=== PATIENT | male | born 2000 | race Caucasian/White ===

== ENCOUNTER 2021-02-10 06:31 | Observation (INO) ==
[2021-02-10] MEDS ORDERED: ONDANSETRON INJ 2 MG/ML 2 ML VIAL IV STA (07:04)
[2021-02-10] MEDS ORDERED: SODIUM CHLORIDE 0.9% 1000ML 2,000 ML IV ONE (07:04)
[2021-02-10] MEDS ORDERED: MAGNESIUM SULFATE / D5W 1 GM/100 ML BAG IV STA (07:05)
[2021-02-10 07:12] LABS: Basophils # (auto) 0.01 K/uL (0-0.2); Basophils % (auto) 0.1 %; Eosinophils # (auto) 0.03 K/uL (0-0.5); Eosinophils % (auto) 0.3 %; Hematocrit (blood only) 44.9 % (42-52); Hemoglobin 15.9 g/dL (14.0-18.0); Immature Granulocytes # (auto) 0.01 K/uL (0.00-0.02); Immature Granulocytes % (auto) 0.1 %; Lymphocytes # (auto) 1.38 K/uL (1.2-3.4); Mean Corpuscular Hemoglobin 31.8 pg (25-34); Mean Corpuscular Hgb Conc 35.4 g/dL (32-36); Mean Corpuscular Volume 89.8 fL (80-100); Mean Platelet Volume 10.7 fL (7.4-10.4); Monocytes # (auto) 0.76 K/uL (0.11-0.59); Monocytes % (auto) 8.3 %; Neutrophils # (auto) 7.02 K/uL (1.4-6.5); Neutrophils % (auto) 76.2 %; Platelet Count 460 K/uL (130-400); RDW Coefficient of Variation 12.8 % (11.5-14.5); RDW Standard Deviation 41.9 fL (36.4-46.3); White Blood Count 9.21 K/uL (4.8-10.8)
--- NOTE | 2021-02-10 07:16 | Emergency Department Note ---
Impression & Plan Cyclic vomiting syndrome, Acute dehydration ED Provider Note NAME: SHON BROOKE AGE: 20 SEX: M : 2000 ARRIVES VIA: Walk-In INFORMANT: Patient, ED PROVIDER(S): Guy Pantoja DO CHIEF COMPLAINT: Nausea vomiting HPI: The patient is a 20-year-old male who presented to the emergency department for an evaluation of nausea vomiting. The patient has a history of cyclic vomiting. He has had a history of cyclic vomiting from a very young age. Initially he was evaluated and worked up at [facility] in [place]. The patient now follows at [facility]. He is from the [place] area. He is visiting friends currently. He started having nausea vomiting symptoms over the course the last 24 hours. He denies having any hematemesis. He does have abdominal pain which is diffuse. He has had similar symptoms multiple times in the past. He normally tries to take his outpatient medication regimen which includes a benzodiazepine but he was unable to tolerate the medication because of extensive vomiting. He is also had a history of liver problems because of extensive vomiting in the past as well as hypomagnesemia. The patient denies having any fever or trauma. He does not use marijuana p roducts. He does not drink alcohol frequently and has had no alcohol over the last 24 hours. The patient denies having any headache or neurologic symptoms. He states his symptoms are moderate to severe. He has been started on CBD products with only minimal improvement of his symptoms. He does have a specialist appointment on February 26. ROS: See above HPI for pertinent positives & negatives. A total of 10 systems reviewed and were otherwise negative. PAST MEDICAL HISTORY: See Below PAST SURGICAL HISTORY: See Below FAMILY HISTORY: See Below SOCIAL HISTORY: See Below HOME MEDICATIONS: See Below ALLERGIES: See Below VITALS: See Below PHYSICAL EXAMINATION: GENERAL: The patient is awake and alert. The patient is somewhat anxious appearing. EYES: The conjunctivae are clear. The pupils are round and reactive. EARS, NOSE, MOUTH AND THROAT: The nose is without any evidence of any deformity. NECK: The neck is nontender and supple. RESPIRATORY: Normal respiratory effort is noted there is no evidence of wheezing rhonchi or rales CARDIOVASCULAR: Regular rate and rhythm noted there no murmurs rubs or gallops normal S1 normal S2. GASTROINTESTINAL: The abdomen is soft and nondistended. There is no guarding or rigidity appreciated. MUSCULOSKELETAL/EXTREMITIES: There is no evidence of gross deformity full range of motion is noted in the hips and shoulders. SKIN: There is no obvious evidence of any rash. There are no petechiae, pallor or cyanosis noted. NEUROLOGIC: Patient is awake alert and oriented x3 strength is symmetric patellar reflexes are 2+ bilaterally MEDICAL DECISION MAKING: The patient is a 20-year-old male who presented to the emergency department for an evaluation of cyclic vomiting. The patient has a history of similar episodes in the past ever since he was a young child. He does have specialty services and has a specialist appointment scheduled for the middle of February. The patient states he normally responds well to benzodiazepines as well as antiemetics but admits that his condition is very difficult to manage at times. He was treated with significant IV fluid hydration as well as Valium and Zofran. He was reevaluated multiple times. He was feeling somewhat improved on reevaluation. I discussed the patient's laboratory results with him. He was found to have significant dehydration. His abdominal exam was not consistent with acute surgical abdomen. The patient was treated with multiple fluid boluses. He continued to have episodes of emesis throughout the morning. He had some episodes of bilious emesis so an ultrasound was obtained to ensure there was no biliary pathology. I discussed the patient's laboratory and radiographic studies with him once again. Because of ongoing symptoms his parent was concerned that he should stay in the hospital for further inpatient evaluation. For this reason I discussed his case with the on-call [facility]. Triage Nursing notes reviewed. Prior medical records reviewed Vital Signs: reviewed and remarkable for no significant abnormalities Differential diagnosis: Gastroenteritis, food borne illness, infections, appendicitis, diverticulitis, inflammatory bowel disease, obstruction, GI bleed, biliary pathology, volvulus, as well as other pathologies. ER treatment provided: See below Diagnostics interpreted by me: ECG: none Cardiac Monitoring: An order was placed for continuous cardiac monitoring. The monitor shows a rate of 82 bpm with sinus rhythm. Laboratory studies: As stated above and show below. Imaging studies: See below Consultation(s): 1440: I discussed this case with Dr. Fermin who is on-call for the [facility] group. He will evaluate the patient in the emergency department. Past Med/Surg History Medical History Cyclic vomiting syndrome Social History Smoking Status: Never smoker Hx Alcohol Use: Yes Alcohol type: beer Alcohol Intake Frequency: Monthly or Less Feels Safe at Home: Yes Allergies Allergies Allergy/AdvReac Type Severity Reaction Status Date / Time haloperidol [From Haldol] AdvReac Severe Paralyzed Unverified 02/10/21 07:30 ~ mouth foaming Home Meds Home Medications Medication Instructions Recorded Confirmed calcium carbonate [Calcium 500] 0 mg PO QAM 02/10/21 02/10/21 cholecalciferol (vitamin D3) 25 mcg PO QAM 02/10/21 02/10/21 [Vitamin D3] Results & Data (ED) Vital Signs Vital Signs - 24 hr 02/10/21 06:41 02/10/21 07:27 02/10/21 10:12 Temperature 36.8 C Temperature Source Temporal Artery Scan Pulse Rate 85 Pulse Rate [Apical] 89 Respiratory Rate 18 18 Respiratory Effort / Characteristics Non-Labored Spontaneous Respiratory Depth Normal Blood Pressure 132/87 Blood Pressure [Left Arm] 145/88 H Blood Pressure Mean 102 Blood Pressure Mean [Left Arm] 107 Pulse Oximetry 98 98 98 Oxygen Delivery Method Room Air Room Air Room Air Sepsis Recent Fever Within 48 Hours No Sepsis New/Unexplained Change in Mental Status No Sepsis Action Taken by Nursing No Action Required 02/10/21 11:50 02/10/21 13:12 02/10/21 14:38 Temperature Temperature Source Pulse Rate Pulse Rate [Apical] 69 82 92 H Respiratory Rate 14 21 15 Respiratory Effort / Characteristics Respiratory Depth Blood Pressure Blood Pressure [Left Arm] 138/83 141/96 H 140/80 Blood Pressure Mean Blood Pressure Mean [Left Arm] 101 111 100 Pulse Oximetry 99 100 99 Oxygen Delivery Method Room Air Room Air Room Air Sepsis Recent Fever Within 48 Hours Sepsis New/Unexplained Change in Mental Status Sepsis Action Taken by [facility] Medications Current Medication List: was personally reviewed by me Laboratory Data Attestation: I reviewed the patient's lab results. Result diagrams: 02/10/21 07:00 02/10/21 07:00 Lab Results 02/10/21 02/10/21 02/10/21 Range/Units 07:00 07:00 07:45 WBC 9.21 (4.8-10.8) K/uL RBC 5.00 (4.7-6.1) M/uL Hgb 15.9 (14.0-18.0) g/dL Hct 44.9 (42-52) % MCV 89.8 (80-100) fL MCH 31.8 (25-34) pg MCHC 35.4 (32-36) g/dL RDW Std Deviation 41.9 (36.4-46.3) fL RDW Coeff of Felix 12.8 (11.5-14.5) % Plt Count 460 H (130-400) K/uL MPV 10.7 H (7.4-10.4) fL Immature Gran % (Auto) 0.1 % Neut % (Auto) 76.2 % Lymph % (Auto) 15.0 % [place] % (Auto) 8.3 % Eos % (Auto) 0.3 % Baso % (Auto) 0.1 % Neut # (Auto) 7.02 H (1.4-6.5) K/uL Lymph # (Auto) 1.38 (1.2-3.4) K/uL [place] # (Auto) 0.76 H (0.11-0.59) K/uL Eos # (Auto) 0.03 (0-0.5) K/uL Baso # (Auto) 0.01 (0-0.2) K/uL Immature Gran # (Auto) 0.01 (0.00-0.02) K/uL Sodium 137 (136-145) mmol/L Potassium 3.7 (3.5-5.1) mmol/L Chloride 103 (98-107) mmol/L Carbon Dioxide 26 (21-32) mmol/L Anion Gap 8.0 (3-11) BUN 15 (7-18) mg/dl Creatinine 1.05 (0.6-1.4) mg/dl Est Cr Clr Drug Dosing 90.5 ml/min Est GFR ( Amer) 116.2 Est GFR (Non-Af Amer) 100.3 BUN/Creatinine Ratio 13.9 (10-20) Glucose 146 H (70-99) mg/dl Calcium 10.7 H (8.5-10.1) mg/dl Magnesium 2.2 (1.8-2.4) mg/dl Total Bilirubin 1.5 H (0.2-1) mg/dl AST 30 (15-37) U/L ALT 49 (12-78) U/L Alkaline Phosphatase 106 (45-117) U/L Total Protein 8.8 H (6.4-8.2) gm/dl Albumin 5.2 H (3.4-5.0) gm/dl Globulin 3.6 (2.5-4.0) gm/dl Albumin/Globulin Ratio 1.4 (0.9-2) Lipase 65 L (73-393) U/L Urine Color Dark Yellow Urine Appearance Cloudy A (Clear) Urine pH 7.5 (4.5-7.5) Ur Specific [place] 1.033 H (1.000-1.030) Urine Protein 2+ H (Negative) Urine Glucose (UA) Negative (Negative) Urine Ketones 4+ H (Negative) Urine Blood Negative (Negative) Urine Nitrite Negative (Negative) Urine Bilirubin 1+ H (Negative) Urine Urobilinogen Negative (Negative) Ur Leukocyte Esterase Negative (Negative) Urine WBC (Auto) 1-5 (0-5) /hpf Urine RBC (Auto) 0-4 (0-4) /hpf U Hyaline Cast (Auto) 5-10 H (0-5) /lpf U Epithel Cells (Auto) 10-20 H (0-5) /lpf Urine Bacteria (Auto) Negative (Negative) Urine Opiates Screen (Neg) Ur Methadone, Qual (Neg) Urine Barbiturates (Neg) Ur Phencyclidine (PCP) (Neg) U Amphetamin/Meth Scrn (Neg) MDMA (Ecstasy) Screen (Neg) U Benzodiazepines Scrn (Neg) Ur Cocaine Metabolite (Neg) U Marijuana (THC) Screen (Neg) COVID-19 Eval Order SARS-CoV-2 (PCR) (Negative) Influenza Type A (PCR) (Neg) Influenza Type B (PCR) (Neg) RSV (RT-PCR) (Neg) 02/10/21 02/10/21 02/10/21 Range/Units 13:03 13:07 13:07 WBC (4.8-10.8) K/uL RBC (4.7-6.1) M/uL Hgb (14.0-18.0) g/dL Hct (42-52) % MCV (80-100) fL MCH (25-34) pg MCHC (32-36) g/dL RDW Std Deviation (36.4-46.3) fL RDW Coeff of Felix (11.5-14.5) % Plt Count (130-400) K/uL MPV (7.4-10.4) fL Immature Gran % (Auto) % Neut % (Auto) % Lymph % (Auto) % [place] % (Auto) % Eos % (Auto) % Baso % (Auto) % Neut # (Auto) (1.4-6.5) K/uL Lymph # (Auto) (1.2-3.4) K/uL [place] # (Auto) (0.11-0.59) K/uL Eos # (Auto) (0-0.5) K/uL Baso # (Auto) (0-0.2) K/uL Immature Gran # (Auto) (0.00-0.02) K/uL Sodium (136-145) mmol/L Potassium (3.5-5.1) mmol/L Chloride (98-107) mmol/L Carbon Dioxide (21-32) mmol/L Anion Gap (3-11) BUN (7-18) mg/dl Creatinine (0.6-1.4) mg/dl Est Cr Clr Drug Dosing ml/min Est GFR ( Amer) Est GFR (Non-Af Amer) BUN/Creatinine Ratio (10-20) Glucose (70-99) mg/dl Calcium (8.5-10.1) mg/dl Magnesium (1.8-2.4) mg/dl Total Bilirubin (0.2-1) mg/dl AST (15-37) U/L ALT (12-78) U/L Alkaline Phosphatase (45-117) U/L Total Protein (6.4-8.2) gm/dl Albumin (3.4-5.0) gm/dl Globulin (2.5-4.0) gm/dl Albumin/Globulin Ratio (0.9-2) Lipase (73-393) U/L Urine Color Urine Appearance (Clear) Urine pH (4.5-7.5) Ur Specific [place] (1.000-1.030) Urine Protein (Negative) Urine Glucose (UA) (Negative) Urine Ketones (Negative) Urine Blood (Negative) Urine Nitrite (Negative) Urine Bilirubin (Negative) Urine Urobilinogen (Negative) Ur Leukocyte Esterase (Negative) Urine WBC (Auto) (0-5) /hpf Urine RBC (Auto) (0-4) /hpf U Hyaline Cast (Auto) (0-5) /lpf U Epithel Cells (Auto) (0-5) /lpf Urine Bacteria (Auto) (Negative) Urine Opiates Screen Neg (Neg) Ur Methadone, Qual Neg (Neg) Urine Barbiturates Neg (Neg) Ur Phencyclidine (PCP) Neg (Neg) U Amphetamin/Meth Scrn Neg (Neg) MDMA (Ecstasy) Screen Neg (Neg) U Benzodiazepines Scrn Pos H (Neg) Ur Cocaine Metabolite Neg (Neg) U Marijuana (THC) Screen Pos H (Neg) COVID-19 Eval Order CovFluRsv at [facility] SARS-CoV-2 (PCR) NEGATIVE (Negative) Influenza Type A (PCR) Negative (Neg) Influenza Type B (PCR) Negative (Neg) RSV (RT-PCR) Negative (Neg) Administered Medications Discontinued Medications Diazepam (Diazepam 5 Mg/Ml Inj 10ml Vial) 5 mg IV NOW STA Stop: 02/10/21 07:05 Last Admin: 02/10/21 07:29 Dose: 5 mg Documented by: [id number] Diazepam (Diazepam 5 Mg/Ml Inj 10ml Vial) 2.5 mg IV NOW STA Stop: 02/10/21 08:39 Last Admin: 02/10/21 09:18 Dose: 2.5 mg Documented by: [id number] Sodium Chloride (Nss 1000ml) 2,000 mls @ 999 mls/hr IV .Q2H1M ONE Stop: 02/10/21 09:04 Last Infusion: 02/10/21 11:31 Dose: 0 mls/hr Documented by: [id number] Admin: 02/10/21 07:29 Dose: 999 mls/hr Documented by: [id number] Magnesium Sulfate/Dextrose (Magnesium Sulfate / D5w) 1 gm in 100 mls @ 100 mls/hr IV NOW STA Stop: 02/10/21 08:04 Last Infusion: 02/10/21 08:33 Dose: 0 mls/hr Documented by: [id number] Admin: 02/10/21 07:29 Dose: 100 mls/hr Documented by: [id number] Pantoprazole Sodium 40 mg/ (Syringe) 10 mls @ 5 mls/min IV NOW ONE Stop: 02/10/21 12:32 Last Admin: 02/10/21 13:31 Dose: 5 mls/min Documented by: [id number] Lactated Ringer's (Lr) 1,000 mls @ 999 mls/hr IV .Q1H1M ONE Stop: 02/10/21 13:31 Last Admin: 02/10/21 12:42 Dose: 999 mls/hr Documented by: [id number] Ondansetron HCl (Ondansetron Inj 2 Mg/Ml 2 Ml Vial) 4 mg IV NOW STA Stop: 02/10/21 07:05 Last Admin: 02/10/21 07:29 Dose: 4 mg Documented by: [id number] Imaging Data Radiologist's Impression: Gallbladder Ultrasound 02/10/21 12:31 US gallbladder CLINICAL HISTORY: vomiting COMPARISON STUDY: No previous studies for comparison. FINDINGS: The pancreas appears normal as visualized. The liver appears sonographically normal. The gallbladder appears sonographically normal. There is no ductal dilatation. The common bile duct measures 3 mm. There is no right-sided hydronephrosis. IMPRESSION: Normal biliary ultrasound. ACT 112: Negative or not required by law. Electronically signed by: Adrian Pascual M.D. 02/10/2021 2:05 PM KUB X-Ray 02/10/21 12:31 XR KUB/Abdomen 1 view CLINICAL HISTORY: vomiting COMPARISON STUDY: No previous studies for comparison. FINDINGS: There is no pathologic bowel dilatation. There are no calcifications suspicious for urinary tract calculi. IMPRESSION: Nonobstructive bowel gas pattern. ACT 112: Negative or not required by law. Electronically signed by: Adrian Pascual M.D. 02/10/2021 1:00 PM Discharge Plan Visit Data Chief Complaint: Vomiting Stated Complaint: VOMITING ED Provider: Guy Pantoja Discharge Problem: Cyclic vomiting syndrome, Acute dehydration Forms Stand Alone Forms: [employer] Prescriptions Prescriptions: No Action calcium carbonate [Calcium 500] 500 mg calcium (1,250 mg) Tablet 0 mg PO QAM RF: 0 cholecalciferol (vitamin D3) [Vitamin D3] 25 mcg (1,000 unit) Tablet 25 mcg PO QAM RF: 0 Referrals Referrals: Abundio Camp, [Primary Care Provider] -
[2021-02-10 07:28] LABS: Albumin Level 5.2 gm/dl (3.4-5.0); BUN Creatinine Ratio 13.9 (10-20); Calcium 10.7 mg/dl (8.5-10.1); Creatinine Clr Calc Pharmacy 90.5 ml/min; Est GFR (African American) 116.2; Est GFR (Non-African American) 100.3; Magnesium 2.2 mg/dl (1.8-2.4); Potassium 3.7 mmol/L (3.5-5.1)
[2021-02-10 07:31] LABS: Albumin Globulin Ratio 1.4 (0.9-2); Bilirubin,Total 1.5 mg/dl (0.2-1); Globulin 3.6 gm/dl (2.5-4.0); Total Protein 8.8 gm/dl (6.4-8.2)
[2021-02-10 08:00] LABS: Appearance Urine Cloudy (Clear); Bacteria Urine Automated Negative (Negative); Blood Urine Negative (Negative); Color Urine Dark Yellow; Glucose Urine UA Negative (Negative); Ketones Urine 4+ (Negative); Leukocyte Esterase Urine Negative (Negative); Nitrite Urine Negative (Negative); RBC Urine Automated 0-4 /hpf (0-4); Specific Gravity Urine 1.033 (1.000-1.030); Urobilinogen Urine Negative (Negative); pH Urine 7.5 (4.5-7.5)
[2021-02-10 08:07] LABS: Bilirubin Urine 1+ (Negative); Protein Urine 2+ (Negative)
[2021-02-10] MEDS ORDERED: PANTOprazole 40 MG in SYRINGE 0 ML IV ONE (12:31)
[2021-02-10] MEDS ORDERED: LACTATED RINGER'S 1,000 ML IV ONE (12:31)
--- NOTE | 2021-02-10 13:02 | XRay Report ---
XR KUB/Abdomen 1 view CLINICAL HISTORY: vomiting COMPARISON STUDY: No previous studies for comparison. FINDINGS: There is no pathologic bowel dilatation. There are no calcifications suspicious for urinary tract calculi. IMPRESSION: Nonobstructive bowel gas pattern. ACT 112: Negative or not required by law. Electronically signed by: Adrian Pascual M.D. 02/10/2021 1:00 PM
[2021-02-10 13:44] LABS: Amphetamines+Metham, Urine Neg (Neg); Barbiturates, Urine Neg (Neg); Benzodiazepine, Urine Pos (Neg); Cocaine, Urine Neg (Neg); MDMA (Ecstacy), Urine Neg (Neg); Methadone, Urine Neg (Neg); Opiate, Urine Neg (Neg); Phencyclidine, Urine Neg (Neg)
[2021-02-10 14:02] LABS: Influenza A virus by PCR Negative (Neg); Influenza B virus by PCR Negative (Neg); RSV by PCR Negative (Neg); SARS CoV2 RNA(COVID-19) InHosp NEGATIVE (Negative)
--- NOTE | 2021-02-10 14:06 | Ultrasound Report ---
US gallbladder CLINICAL HISTORY: vomiting COMPARISON STUDY: No previous studies for comparison. FINDINGS: The pancreas appears normal as visualized. The liver appears sonographically normal. The gallbladder appears sonographically normal. There is no ductal dilatation. The common bile duct measures 3 mm. There is no right-sided hydronephrosis. IMPRESSION: Normal biliary ultrasound. ACT 112: Negative or not required by law. Electronically signed by: Adrian Pascual M.D. 02/10/2021 2:05 PM
--- NOTE | 2021-02-10 15:15 | History & Physical Report ---
Date of Service February 10, 2021 Assessment & Plan (1) Cyclic vomiting syndrome: Bilious vomiting -no obstruction suspected from x-ray KUB, will defer CT given his young age and likely multiple previous CTs with low likelihood of obstruction Trial sumatriptan 6 mg SQ in the ER. Consider intranasal spray outpatient prescription if effective. Ondansetron, Phenergan, Valium as needed for nausea or vomiting. Mostly the Valium has worked before in the past. May shower as long as he is not dizzy Continue IV fluids with LR @ 150 ml/hr Famotidine 20 mg IV daily for gastric protection (2) Abdominal migraine, intractable: Suspected diagnosis as above. (3) Acute dehydration: Given ongoing vomiting we will continue IV fluids with LR @ 150 ml/hr overnight Hyaline casts noted in urine in addition to ketones Admission and Anticipated Discharge Date Admission Date: February 10, 2021 History of Present Illness Chief Complaint: Nausea and vomiting Primary Care Provider: Abundio Camp DO Alexandro Sy is a 20-year-old male who presents to the ER with intractable nausea and vomiting. His mother is at bedside who provides a lot of the history. He has a longstanding history of cyclic vomiting syndrome since he was 3 years old. Previously on prophylaxis for nortriptyline for a year but then it stopped working. They recently transferred to neuro gastric specialist at [facility] with follow-up on February 26 however as part of the work-up for this is routine medications were stopped. He does note associated migrainous headaches although reports his abdominal pain, nausea and vomiting have never been described as abdominal migraine. His mother used to work in a pharmaceutical industry and has many friends in medicine and shows me a message from one of them suggesting sumatriptan as a possible treatment. He has never tried this before in the past. His symptoms have been so severe has had to drop out of school. This is the sixth ER visit since September. On prior occasions usual antiemetics such as ondansetron and Compazine have been unsuccessful. He reports some prior improvement with Phenergan. Mostly diazepam, hot water showers, and "sleeping it off" are the only things he has found that helps. Last EGD in September which showed a lot of things were read. He was supposed to start on a medication starting with 'o' for stomach acid which I presume is omeprazole although is yet to brain picker this medication. His mother reports he had a normal gastric emptying study as a child but not as an adult. On this occasion he was here visiting friends. He did not drink any alcohol. As soon as he arrived he started vomiting. In the ER THC was positive and the patient admits to using CBD oil. Both the patient and his mother are adamant this is not contributing towards his current presentation. Despite a total of 7.5 mg IV diazepam, ondansetron 4 mg IV, pantoprazole 40 mg IV, magnesium sulfate and IV fluids he continues to vomit in the ER. Therefore he was referred to medicine for admission ongoing management of intractable cyclic vomiting syndrome. Allergies Allergy/AdvReac Type Severity Reaction Status Date / Time haloperidol [From Haldol] AdvReac Severe Paralyzed Unverified 02/10/21 07:30 ~ mouth foaming Home Medications Medication Instructions Recorded Confirmed Type calcium carbonate [Calcium 500] 0 mg PO QAM 02/10/21 02/10/21 History cholecalciferol (vitamin D3) 25 mcg PO QAM 02/10/21 02/10/21 History [Vitamin D3] Past Med/Surg History Medical History Cyclic vomiting syndrome Social History Smoking Status: Never smoker Do You Dip or Chew Tobacco: No; Hx Alcohol Use: Yes Alcohol type: beer Alcohol Intake Frequency: Monthly or Less Hx Substance Use: Yes Last Used Substance: Days (ago) Last Used Substance Other:: 7 days Preferred Language: Estonian Housing Grant Analyst Required: No Beliefs That Will Affect Care: None Current Living Situation: Family Other Information That Helps Us Care for You: No Feels Safe at Home: Yes Safety Concerns: Feels Safe At This Time Assistive Devices: Glasses Assistive Devices Comment: Glasses not here Review of Systems Review of Systems: All systems reviewed & are unremarkable except as noted in HPI & below Gastrointestinal: + abdominal pain (Generalized), + belching, + vomiting (billous) and + cramping; no change in bowel habits Physical Exam Constitutional: WD/WN, vitals as above Eyes: + anicteric sclerae; normal pupil size ENMT: Mouth: + dry oral mucous membranes Respiratory: normal respiratory effort, lungs clear to auscultation Cardiovascular: RRR, no murmur, no edema Gastrointestinal (Abdomen): Inspection/Auscultation: abdomen normal to inspection and normal bowel sounds Percussion/Palpation: + abdomen tender (Generalized), + guarding and abdomen soft; abdomen not rigid Musculoskeletal: no cyanosis or clubbing, extremities motor strength 5/5 Skin: no rashes, warm and dry Neurologic: moves all extremities and awake; not confused Psychiatric: A+Ox3, euthymic affect Results & Data Results & Data ([facility]) Vital Signs (Past 12 Hours) Vital Signs Temp Pulse Pulse Resp BP BP Pulse Ox 02/10/21 14:38 92 H 15 140/80 99 02/10/21 13:12 82 21 141/96 H 100 02/10/21 11:50 69 14 138/83 99 02/10/21 10:12 89 18 145/88 H 98 02/10/21 07:27 98 02/10/21 06:41 36.8 C 85 18 132/87 98 Diagnostic Findings US gallbladder IMPRESSION: Normal biliary ultrasound. XR KUB/Abdomen 1 view IMPRESSION: Nonobstructive bowel gas pattern. Medications Administered ER medications given: Ondansetron 4 mg IV Diazepam 5 mg IV NSS 2L bolus Magnesium sulfate 1 g IV Diazepam 2.5 mg IV Pantoprazole 40 mg IV Lactated Ringer's 1L bolus ECG Indication: abdominal pain Rate (beats per minute): 73 Rhythm: sinus with SA Findings: no acute ischemic change and no prolonged QT Change: no significant change Code Status & VTE Plan Code Status Full VTE Prophylaxis Plan VTE Prophylaxis will be ordered: No PG Care Time/CCT Total # of Minutes Spent Total Time Spent with Patient: Total time spent is greater than 50% in coordination of care (as documented) at patient's floor/unit and/or counseling patient: Coding Level of Care Code 30400 OBS Care - Level 3 Diagnoses Cyclic vomiting syndrome R11.15 Abdominal migraine, intractable G43.D1 Acute dehydration E86.0
[2021-02-10] MEDS ORDERED: SUMAtriptan succinate 6 MG/0.5 ML VIAL SQ STA (16:18)
[2021-02-10] MEDS ORDERED: SUMAtriptan succinate 6 MG/0.5 ML VIAL ONE (16:20)
[2021-02-10] MEDS ORDERED: PROMETHAZINE HCL 12.5 MG in SODIUM CHLORIDE 0.9% 50 ML IV PRN (17:32)
[2021-02-10] MEDS ORDERED: ONDANSETRON INJ 2 MG/ML 2 ML VIAL IV PRN (17:32)
[2021-02-10] MEDS ORDERED: FAMOTIDINE 20MG/5ML IV PUSH IV STA (17:32)
[2021-02-10] MEDS ORDERED: FAMOTIDINE 20 MG in SYRINGE 3 ML IV ONE (17:45)
[2021-02-10] MEDS: LACTATED RINGER'S 1,000 ML IV SCH (17:47)
[2021-02-10] MEDS ORDERED: diazePAM 5 MG TABLET PO PRN (19:03)
[2021-02-10] MEDS ORDERED: SUMAtriptan succinate 6 MG/0.5 ML VIAL SQ PRN (20:06)
[2021-02-10] MEDS ORDERED: ACETAMINOPHEN 1,000 MG/100 ML VIAL IV PRN (23:47)
[2021-02-11] MEDS: LACTATED RINGER'S 1,000 ML IV SCH ×2 (00:15→06:00)
[2021-02-11 06:22] LABS: Alanine Aminotransferase 36 U/L (12-78); Albumin Globulin Ratio 1.4 (0.9-2); Albumin Level 3.8 gm/dl (3.4-5.0); Alkaline Phosphatase 75 U/L (45-117); Aspartate Aminotransferase 15 U/L (15-37); BUN Creatinine Ratio 10.9 (10-20); Bilirubin,Total 1.2 mg/dl (0.2-1); Blood Urea Nitrogen 8 mg/dl (7-18); Calcium 8.8 mg/dl (8.5-10.1); Carbon Dioxide 29 mmol/L (21-32); Chloride 108 mmol/L (98-107); Creatinine Clr Calc Pharmacy 150.8 ml/min; Est GFR (African American) > 150.0; Est GFR (Non-African American) 130.2; Globulin 2.7 gm/dl (2.5-4.0); Glucose 95 mg/dl (70-99); Potassium 3.9 mmol/L (3.5-5.1); Sodium 139 mmol/L (136-145); Total Protein 6.5 gm/dl (6.4-8.2)
--- NOTE | 2021-02-11 09:46 | Discharge Summary ---
Date of Service February 11, 2021 Admission HPI Per Admitting Provider Alexandro Sy is a 20-year-old male who presents to the ER with intractable nausea and vomiting. His mother is at bedside who provides a lot of the history. He has a longstanding history of cyclic vomiting syndrome since he was 3 years old. Previously on prophylaxis for nortriptyline for a year but then it stopped working. They recently transferred to neuro gastric specialist at [facility] with follow-up on February 26 however as part of the work-up for this is routine medications were stopped. He does note associated migrainous headaches although reports his abdominal pain, nausea and vomiting have never been described as abdominal migraine. His mother used to work in a [employer] industry and has many friends in medicine and shows me a message from one of them suggesting sumatriptan as a possible treatment. He has never tried this before in the past. His symptoms have been so severe has had to drop out of school. This is the sixth ER visit since September. On prior occasions usual antiemetics such as ondansetron and Compazine have been unsuccessful. He reports some prior improvement with Phenergan. Mostly diazepam, hot water showers, and "sleeping it off" are the only things he has found that helps. Last EGD in September which showed a lot of things were read. He was supposed to start on a medication starting with 'o' for stomach acid which I presume is omeprazole although is yet to warp picker this medication. His mother reports he had a normal gastric emptying study as a child but not as an adult. On this occasion he was here visiting friends. He did not drink any alcohol. As soon as he arrived he started vomiting. In the ER THC was positive and the patient admits to using CBD oil. Both the patient and his mother are adamant this is not contributing towards his current presentation. Despite a total of 7.5 mg IV diazepam, ondansetron 4 mg IV, pantoprazole 40 mg IV, magnesium sulfate and IV fluids he continues to vomit in the ER. Therefore he was referred to medicine for admission ongoing management of intractable cyclic vomiting syndrome. Admission Exam Per Admitting Provider Constitutional: WD/WN, vitals as above Eyes: + anicteric sclerae; normal pupil size ENMT: Mouth: + dry oral mucous membranes Respiratory: normal respiratory effort, lungs clear to auscultation Cardiovascular: RRR, no murmur, no edema Gastrointestinal (Abdomen): Inspection/Auscultation: abdomen normal to inspection and normal bowel sounds Percussion/Palpation: + abdomen tender (Generalized), + guarding and abdomen soft; abdomen not rigid Musculoskeletal: no cyanosis or clubbing, extremities motor strength 5/5 Skin: no rashes, warm and dry Neurologic: moves all extremities and awake; not confused Psychiatric: A+Ox3, euthymic affect Principal Diagnosis 1. Cyclic vomiting syndrome, acute exacerbation resolved 2. Acute dehydration, resolved 3. Marijuana abuse Discharge Exam Constitutional WD/WN, vitals as above Eyes + anicteric sclerae Respiratory normal respiratory effort, lungs clear to auscultation Auscultation: lungs clear to auscultation bilaterally Cardiovascular RRR, no murmur, no edema Gastrointestinal (Abdomen) normal bowel sounds, soft, nontender, no hepatosplenomegaly Skin no rashes, warm and dry Neurologic PERRL, EOMI, accommodation nl, no face palsy, no dysarthria Discharge Data Allergies Allergy/AdvReac Type Severity Reaction Status Date / Time haloperidol [From Haldol] AdvReac Severe Paralyzed Unverified 02/10/21 07:30 ~ mouth foaming Consultations 02/10/21 14:22 ED Decision to Admit Stat 02/10/21 14:38 ED Decision to Admit Stat Ordered Studies 02/10/21 12:31 US gallbladder Stat Hospital Course (1) Cyclic vomiting syndrome: Patient had a significant nausea and vomiting, had bowel rest overnight. Hydrated with IV fluids. I was alerted by nursing prior to my visit with him that the patient was feeling much better and wanted be discharged. During my interview, patient expressed no complaints and is completed his entire breakfast without problems. He denies any abdominal pain. Plan today will be to discharge home, I did advise patient to discontinue marijuana as it can make this worse. Patient is to follow-up with his primary care physician as well as other specialists as previously instructed. (2) Abdominal migraine, intractable: Suspected diagnosis as above. (3) Acute dehydration: Given ongoing vomiting we will continue IV fluids with LR @ 150 ml/hr overnight Hyaline casts noted in urine in addition to ketones Total Time Total Time Spent Total Time Spent (In Minutes): 25 Discharge Plan Discharge Items Patient Disposition: Home - Self-Care Reason For Visit: CYCLIC VOMITING SYNDROME Discharge Diagnosis: Cyclic vomiting syndrome, now resolved Acute dehydration, resolved Activity: Resume your previous activity Non-emergency contact: Primary Care Provider Call non-emergency contact if: your symptoms worsen and your rectal temperature is above 100.4 Follow-up/Referrals: Abundio Camp, [Primary Care Provider] - Diet: Regular Addtl Attending Provider Instructions: None Pending Studies at Discharge: No Stand-Alone Forms: My [facility], Smoking Cessation Medications and DC Order Prescriptions: Continued calcium carbonate [Calcium 500] 500 mg calcium (1,250 mg) Tablet 0 mg PO QAM RF: 0 cholecalciferol (vitamin D3) [Vitamin D3] 25 mcg (1,000 unit) Tablet 25 mcg PO QAM RF: 0 Discharge Orders: Discharge Order (Routine); Ordered 02/11/21 Ordered By: Brice Jo Admission Data Admit Date/Time: 02/10/21 14:54 Attending Provider: Brice Jo Admit Provider: Ricardo Fermin Primary Care Provider: Abundio Camp Other Providers: Ricardo Fermin Other Interventions: Discharge Summary Assessment (RN) Last Done: 02/11/21 09:24 Coding Level of Care Code 94751 OBS Care - Discharge Diagnoses Cyclic vomiting syndrome R11.15 Abdominal migraine, intractable G43.D1 Acute dehydration E86.0
--- NOTE | 2021-02-11 21:44 | Electrocardiogram Report ---
Test Reason : Blood Pressure : / mmHG Vent. Rate : 073 BPM Atrial Rate : 073 BPM P-R Int : 128 ms QRS Dur : 094 ms QT Int : 408 ms P-R-T Axes : 060 086 055 degrees QTc Int : 449 ms Poor data quality, interpretation may be adversely affected Sinus rhythm with marked sinus arrhythmia Otherwise normal ECG No previous ECGs available Confirmed by Surinder Egan ([id number]) on 02/11/2021 9:44:07 PM Referred By: REFERRED SELF Confirmed By:Surinder Egan
[2021-02-14 09:52] LABS: 7-Aminoclonaz, Confirm NEGATIVE ng/mL (<25); Hydro-Alp Ur, GC/MS NEGATIVE ng/mL (<25); Hydroxyethylflurazepam, Conf NEGATIVE ng/mL (<50); Hydroxymidazolam Ur, GC/MS NEGATIVE ng/mL (<50); Hydroxytriazolam NEGATIVE ng/mL (<50); Lorazepam, Ur GC/MS NEGATIVE ng/mL (<50); Marijuana Quant, GCMS Urine 3270 ng/mL (<5); Nordiazepam, Confirm 318 ng/mL (<50); Oxazepam Ur, GC/MS NEGATIVE ng/mL (<50); Temazepam, Confirm 118 ng/mL (<50)
== END 2021-02-11 10:30 | disposition home or self-care (01) ==
LOC: 3E 06:31 → ED 06:31 → SUATTDRO 14:54 → 3E 17:06